=== PATIENT | male | born 1985 | race African-American/Black ===

== ENCOUNTER 2016-04-17 11:33 | Emergency (ER) | payer SELFPAY ==
[~2016-04-17] VITALS: Ht 177.8 cm; Wt 100.0 kg
[2016-04-17 11:35] VITALS: BP 142/91; PULSE 98; RESP 16; TEMP 98.6; O2SAT 97
[2016-04-17] MEDS ORDERED: SODIUM CHLOR 0.9% 1000 ML INJ 1,000 ML IV ONE (13:15)
[2016-04-17 13:26] LABS: AUTOMATED NEUTROPHIL # 9.1 TH/MM3 (1.8-7.7); BASOPHIL # 0.1 TH/MM3 (0-0.2); BASOPHIL % 0.5 % (0.0-2.0); EOSINOPHIL % 0.3 % (0.0-4.0); HEMATOCRIT 45.1 % (39.0-51.0); LYMPH % 20.9 % (9.0-44.0); LYMPHOCYTE # 3.1 TH/MM3 (1.0-4.8); MEAN CELL VOLUME 77.8 FL (80.0-100.0); MEAN CORPUSCULAR HEMOGLOBIN 27.1 PG (27.0-34.0); MEAN CORPUSCULAR HGB CONC 34.9 % (32.0-36.0); MONO % 16.4 % (0.0-8.0); NEUT % 61.9 % (16.0-70.0); PLATELET COUNT 259 TH/MM3 (150-450); RED CELL DISTRIBUTION WIDTH 14.8 % (11.6-17.2); WHITE BLOOD COUNT 14.7 TH/MM3 (4.0-11.0)
[2016-04-17 13:28] LABS: HEMO FLAGS AUTO DIFF
--- NOTE | 2016-04-17 13:28 | PD ---
HPI Chief Complaint: Pain: Acute or Chronic Time Seen by Provider: 13:25 Travel History International Travel<30 days: No Contact w/Intl Traveler<30days: No Traveled to known affect area: No History of Present Illness HPI 30-year-old male presents to the emergency department for evaluation of body aches, "organ pain", pleuritic chest pain. Patient states he thinks "I'm coming down with something". Patient denies any fevers or chills. No shortness of breath. He states he felt nausea, but no vomiting. He states that he had some abdominal pain yesterday but this is resolved. Patient denies any chronic medical problems or taking prescribed medications. He reports drinking approximately 6 pack of beer daily, smokes tobacco. He denies any illicit drug use. Patient denies any other complaints at this time. [facility] Past Medical History Medical History: Denies Significant Hx Hx Anticoagulant Therapy: No Asthma: Yes Blood Disorders: No Bipolar Disorder: Yes Cancer: No Cardiovascular Problems: No Chemotherapy: No Cerebrovascular Accident: No Diabetes: No Diminished Hearing: No Psychiatric: Yes (HBS INPT) Respiratory: No Seizures: No Sickle Cell Disease: Yes (TRAIT) Thyroid Disease: No Ulcer: No Past Surgical History Appendectomy: Yes Other Surgery: Yes (HERNIA REPAIR) Social History Alcohol Use: Yes Tobacco Use: Yes Substance Use: Yes (marijuana) Allergies-Medications (Allergen,Severity, Reaction): Coded Allergies: No Known Allergies (Verified , 04/17/16) Reported Meds & Prescriptions Reported Meds & Active Scripts Active No Active Prescriptions or Reported Medications Review of Systems Except as stated in HPI: all other systems reviewed are Neg Physical Exam Narrative GENERAL: Well-developed well-nourished male patient, ambulatory. Afebrile. SKIN: Warm and dry. HEAD: Normocephalic. Atraumatic. ENT: Mucosa pink and moist. Mild erythema, but no exudates. No uvular edema. No uvular, palatal, or tonsillar deviation. Airway patent. Nasal turbinates appear normal without nasal blood, purulent drainage or septal hematoma. Bilateral tympanic membranes are clear without erythema or perforation. EYES: No scleral icterus. No injection or drainage. NECK: Supple, trachea midline. No JVD or lymphadenopathy. CARDIOVASCULAR: Regular rate and rhythm without murmurs, gallops, or rubs. RESPIRATORY: Breath sounds equal bilaterally. No accessory muscle use. Lungs sounds clear to auscultation. GASTROINTESTINAL: Abdomen soft, non-tender, nondistended. No abdominal pain to palpation. MUSCULOSKELETAL: No cyanosis, or edema. BACK: Nontender without obvious deformity. No CVA tenderness. Data Data Last Documented VS Vital Signs Date Time Temp Pulse Resp B/P Pulse Ox O2 Delivery O2 Flow Rate FiO2 04/17/16 13:52 98 04/17/16 11:35 98.6 98 16 142/91 Orders Magnesium (Mg) (04/17/16 13:03) Phosphorus (Po4) (04/17/16 13:03) Complete Blood Count With Diff (04/17/16 13:03) Basic Metabolic Panel (Bmp) (04/17/16 13:03) Creatine Kinase (Cpk) (04/17/16 13:03) Iv Access Insert/Monitor (04/17/16 13:03) Ecg Monitoring (04/17/16 13:03) Oximetry (04/17/16 13:03) Sodium Chlor 0.9% 1000 Ml Inj (Ns 1000 M (04/17/16 13:15) Chest, Single Ap (04/17/16 ) Labs Laboratory Tests Test 04/17/16 13:02 White Blood Count 14.7 TH/MM3 Red Blood Count 5.80 MIL/MM3 Hemoglobin 15.7 GM/DL Hematocrit 45.1 % Mean Corpuscular Volume 77.8 FL Mean Corpuscular Hemoglobin 27.1 PG Mean Corpuscular Hemoglobin 34.9 % Concent Red Cell Distribution Width 14.8 % Platelet Count 259 TH/MM3 Mean Platelet Volume 8.5 FL Neutrophils (%) (Auto) 61.9 % Lymphocytes (%) (Auto) 20.9 % Monocytes (%) (Auto) 16.4 % Eosinophils (%) (Auto) 0.3 % Basophils (%) (Auto) 0.5 % Neutrophils # (Auto) 9.1 TH/MM3 Lymphocytes # (Auto) 3.1 TH/MM3 Monocytes # (Auto) 2.4 TH/MM3 Eosinophils # (Auto) 0.0 TH/MM3 Basophils # (Auto) 0.1 TH/MM3 CBC Comment AUTO DIFF Differential Comment AUTO DIFF CONFIRMED Platelet Estimate NORMAL Platelet Morphology Comment NORMAL Sodium Level 137 MEQ/L Potassium Level 3.7 MEQ/L Chloride Level 102 MEQ/L Carbon Dioxide Level 30.1 MEQ/L Anion Gap 5 MEQ/L Blood Urea Nitrogen 11 MG/DL Creatinine 1.14 MG/DL Estimat Glomerular Filtration 92 ML/MIN Rate Random Glucose 83 MG/DL Calcium Level 8.4 MG/DL Phosphorus Level 2.4 MG/DL Magnesium Level 2.2 MG/DL Total Creatine Kinase 96 U/L MDM Medical Decision Making Medical Screen Exam Complete: Yes Emergency Medical Condition: Yes Medical Record Reviewed: Yes Interpretation(s) chest x-ray - CONCLUSION: No acute disease. Differential Diagnosis Viral syndrome versus electrolyte abnormality versus dehydration versus rhabdomyolysis Narrative Course 30-year-old male presents to the emergency department for evaluation of body aches, congestion, "organ pain". Patient appears well on exam. Physical exam is reassuring. CBC, BMP, CK, magnesium, phosphorus, chest x-ray ordered and pending. Patient is given normal saline 1 L IV bolus. CBC shows leukocytosis of 14.7, monocytes 16.4. BMP shows no acute abnormality. CK is 96. Magnesium is 2.2. Phosphorus is 2.4. Chest x-ray shows no acute disease. Physical and lab work is consistent with a viral illness. My attending physician, Dr. Carl, is aware of plan, results, disposition and agrees. The patient verbalizes understanding. He is to follow with primary care physician. He is to return for any acute worsening of symptoms. The patient is agreeable to this plan. The patient was discharged in stable condition with instructions, including return instructions and follow up instructions. Diagnosis Primary Impression: Viral illness Referrals: Primary Care Physician call for appointment Patient Instructions: General Instructions, Viral Syndrome (ED) Departure Forms: Tests/Procedures, Work Release Enter return to work date: Apr 19, 2016 Additional Instructions: Rest. Drink plenty of fluids. Tylenol/Motrin. Follow up with your primary care physician. Return to the emergency department for any acute, worsening of symptoms. Med/Other Pt SpecificInfo: No Change to Meds Scripts No Active Prescriptions or Reported Meds Disposition: 01 DISCHARGE HOME Condition: Stable Janina Chavarria Apr 17, 2016 13:28
[2016-04-17 13:49] LABS: BICARBONATE 30.1 MEQ/L (21.0-32.0); MAGNESIUM 2.2 MG/DL (1.5-2.5); POTASSIUM 3.7 MEQ/L (3.5-5.1)
[2016-04-17 13:52] VITALS: O2SAT 98
--- NOTE | 2016-04-17 13:59 | RADRPT ---
EXAM DATE/TIME: 04/17/2016 13:33 [facility] COMPARISON: CHEST SINGLE AP, January 08, 2016, 15:49. INDICATIONS : Cough and chest pain. MEDICAL HISTORY : None. SURGICAL HISTORY : None. ENCOUNTER: Initial ACUITY: 1 day PAIN SCORE: 8/10 LOCATION: Bilateral chest FINDINGS: A single view of the chest demonstrates the lungs to be symmetrically aerated without evidence of mas s, infiltrate or effusion. The cardiomediastinal contours are unremarkable. Osseous structures are intact. CONCLUSION: No acute disease. Aditya Pereira MD on April 17, 2016 at 13:57 Board Certified Radiologist. This report was verified electronically.
[2016-04-17 14:10] LABS: PLATELET ESTIMATE SMEAR NORMAL (NORMAL); PLATELET MORPHOLOGY NORMAL (NORMAL)
[2016-04-17 14:11] LABS: SCAN/DIFF AUTO DIFF CONFIRMED
== END 2016-04-17 14:44 | disposition home or self-care (01) ==
LOC: NEPC 11:33
DX: B34.9 Viral infection, unspecified (principal); J45.909 Unspecified asthma, uncomplicated; D57.3 Sickle-cell trait; Z72.0 Tobacco use; D72.829 Elevated white blood cell count, unspecified
CPT/HCPCS: 71010; 80048; 82550; 83735; 84100; 85025; 96360; 99283; J7030

== ENCOUNTER 2016-05-21 20:52 | Emergency (ER) | payer SELFPAY ==
[~2016-05-21] VITALS: Ht 177.8 cm; Wt 100.0 kg
[2016-05-21 20:55] VITALS: BP 132/79; PULSE 78; RESP 16; TEMP 97.5; O2SAT 95
== END 2016-05-21 22:17 | disposition left against medical advice (07) ==
LOC: NED 20:52
DX: Z53.21 Procedure and treatment not carried out due to patient leaving prior to being seen by health care provider (principal)
CPT/HCPCS: 99281

== ENCOUNTER 2016-05-27 16:49 | Emergency (ER) | payer SELFPAY ==
[~2016-05-27] VITALS: Ht 177.8 cm; Wt 100.0 kg
[2016-05-27 17:00] VITALS: BP 155/104; PULSE 121; RESP 22; TEMP 98.8; O2SAT 100
[2016-05-27 17:01] VITALS: BP 172/101; PULSE 142; RESP 26; TEMP 98; O2SAT 95
[2016-05-27 17:06] VITALS: RESP 22; O2SAT 100
[2016-05-27] MEDS ORDERED: LORazepam 2 MG/ML VIAL IV PUSH ONE ×2 (17:15)
[2016-05-27] MEDS ORDERED: SODIUM CHLOR 0.9% 1000 ML INJ 1,000 ML IV ONE (17:15)
[2016-05-27] MEDS ORDERED: SODIUM CHLORIDE 0.9% FLUSH 10 ML FLUSH IVF PRN (17:15)
[2016-05-27 17:16] LABS: AUTOMATED NEUTROPHIL # 12.7 TH/MM3 (1.8-7.7); BASOPHIL # 0.1 TH/MM3 (0-0.2); BASOPHIL % 0.7 % (0.0-2.0); EOSINOPHIL # 0.1 TH/MM3 (0-0.4); EOSINOPHIL % 0.6 % (0.0-4.0); HEMATOCRIT 45.6 % (39.0-51.0); LYMPH % 26.6 % (9.0-44.0); LYMPHOCYTE # 5.2 TH/MM3 (1.0-4.8); MEAN CELL VOLUME 79.1 FL (80.0-100.0); MEAN CORPUSCULAR HEMOGLOBIN 26.6 PG (27.0-34.0); MEAN CORPUSCULAR HGB CONC 33.7 % (32.0-36.0); MONO % 7.1 % (0.0-8.0); PLATELET COUNT 377 TH/MM3 (150-450); RED BLOOD COUNT 5.77 MIL/MM3 (4.50-5.90); WHITE BLOOD COUNT 19.5 TH/MM3 (4.0-11.0)
[2016-05-27 17:19] LABS: HEMO FLAGS AUTO DIFF
[2016-05-27 17:27] LABS: APTT (PATIENT) 24.8 SEC (24.3-30.1); PROTHROMBIN TIME - PATIENT 10.9 SEC (9.8-11.6)
[2016-05-27 17:28] LABS: EOSINOPHILS 1 % (0-4); NEUTROPHIL # MANUAL DIFF 12.5 TH/MM3 (1.8-7.7); PLATELET ESTIMATE SMEAR NORMAL (NORMAL); PLATELET MORPHOLOGY NORMAL (NORMAL); POLYS (SEG NEUTROPHILS) 64 % (16-70); SCAN/DIFF FINAL DIFF MANUAL; WBC DIFF SAMPLE 100
--- NOTE | 2016-05-27 17:31 | PD ---
HPI Chief Complaint: Chest Pain Time Seen by Provider: 17:04 Travel History International Travel<30 days: No Contact w/Intl Traveler<30days: No Traveled to known affect area: No History of Present Illness HPI So 31-year-old man who presents to the emergency department complaining of chest pain that developed after snorting cocaine. Patient states that approximately 1 hour prior to arrival he was snorting cocaine. She can before without adverse effect. Shortly thereafter began to develop chest pain shortness of breath and anxiety. He was also drinking alcohol. He is a history of asthma and anxiety. No history of heart problems. Patient just states over and over again that he feels like he is dying and that he could have a heart attack. History Past Medical History Narrative Medical Asthma Anxiety Cocaine abuse Social History Alcohol Use: Yes (ONCE A WEEK) Tobacco Use: Yes (1/2PPD) Allergies-Medications (Allergen,Severity, Reaction): Coded Allergies: No Known Allergies (Verified , 05/27/16) Reported Meds & Prescriptions Reported Meds & Active Scripts Active No Active Prescriptions or Reported Medications Review of Systems Except as stated in HPI: all other systems reviewed are Neg Physical Exam Narrative GENERAL: Well-appearing 31-year-old man, anxious, nontoxic. SKIN: Focused skin assessment warm/dry. NECK: Trachea midline. No JVD. CARDIOVASCULAR: Heart rate rapid, regular. RESPIRATORY: No accessory muscle use. Clear to auscultation. Breath sounds equal bilaterally. GASTROINTESTINAL: Abdomen soft, non-tender, nondistended. Hepatic and splenic margins not palpable. MUSCULOSKELETAL: No obvious deformities. No edema. NEUROLOGICAL: Awake and alert. No obvious cranial nerve deficits. Motor grossly within normal limits. Normal speech. PSYCHIATRIC: Appropriate mood and affect; insight and judgment normal. Data Data Last Documented VS Vital Signs Date Time Temp Pulse Resp B/P Pulse Ox O2 Delivery O2 Flow Rate FiO2 05/27/16 18:58 104 20 135/93 96 Room Air 05/27/16 17:01 98.0 Orders Electrocardiogram (05/27/16 17:04) Complete Blood Count With Diff (05/27/16 17:04) Comprehensive Metabolic Panel (05/27/16 17:04) Magnesium (Mg) (05/27/16 17:04) Prothrombin Time / Inr (Pt) (05/27/16 17:04) Act Partial Throm Time (Ptt) (05/27/16 17:04) Troponin I (05/27/16 17:04) Chest, Single Ap (05/27/16 17:04) Ecg Monitoring (05/27/16 17:04) Bilateral Bp Monitoring (05/27/16 17:04) Iv Access Insert/Monitor (05/27/16 17:04) Oximetry (05/27/16 17:04) Oxygen Administration (05/27/16 17:04) Sodium Chloride 0.9% Flush (Ns Flush) (05/27/16 17:15) Lorazepam Inj (Ativan Inj) (05/27/16 17:15) Lorazepam Inj (Ativan Inj) (05/27/16 17:15) Sodium Chlor 0.9% 1000 Ml Inj (Ns 1000 M (05/27/16 17:15) Troponin I (05/27/16 20:00) Labs Laboratory Tests Test 05/27/16 17:05 White Blood Count 19.5 TH/MM3 Red Blood Count 5.77 MIL/MM3 Hemoglobin 15.4 GM/DL Hematocrit 45.6 % Mean Corpuscular Volume 79.1 FL Mean Corpuscular Hemoglobin 26.6 PG Mean Corpuscular Hemoglobin 33.7 % Concent Red Cell Distribution Width 16.0 % Platelet Count 377 TH/MM3 Mean Platelet Volume 8.1 FL Neutrophils (%) (Auto) 65.0 % Lymphocytes (%) (Auto) 26.6 % Monocytes (%) (Auto) 7.1 % Eosinophils (%) (Auto) 0.6 % Basophils (%) (Auto) 0.7 % Neutrophils # (Auto) 12.7 TH/MM3 Lymphocytes # (Auto) 5.2 TH/MM3 Monocytes # (Auto) 1.4 TH/MM3 Eosinophils # (Auto) 0.1 TH/MM3 Basophils # (Auto) 0.1 TH/MM3 CBC Comment AUTO DIFF Differential Total Cells 100 Counted Neutrophils % (Manual) 64 % Lymphocytes % 28 % Monocytes % 7 % Eosinophils % 1 % Neutrophils # (Manual) 12.5 TH/MM3 Differential Comment FINAL DIFF MANUAL Platelet Estimate NORMAL Platelet Morphology Comment NORMAL Red Cell Morphology Comment NORMAL Prothrombin Time 10.9 SEC Prothromb Time International 1.0 RATIO Ratio Activated Partial 24.8 SEC Thromboplast Time Sodium Level 138 MEQ/L Potassium Level 3.2 MEQ/L Chloride Level 104 MEQ/L Carbon Dioxide Level 24.3 MEQ/L Anion Gap 10 MEQ/L Blood Urea Nitrogen 7 MG/DL Creatinine 1.06 MG/DL Estimat Glomerular Filtration 99 ML/MIN Rate Random Glucose 128 MG/DL Calcium Level 8.7 MG/DL Magnesium Level 2.1 MG/DL Total Bilirubin 0.4 MG/DL Aspartate Amino Transf 14 U/L (AST/SGOT) Alanine Aminotransferase 24 U/L (ALT/SGPT) Alkaline Phosphatase 82 U/L Troponin I LESS THAN 0.02 NG/ML Total Protein 8.2 GM/DL Albumin 4.4 GM/DL [facility] Medical Decision Making Medical Screen Exam Complete: Yes Emergency Medical Condition: Yes Interpretation(s) My review of EKG: Sinus tachycardia rate of 136, normal axis, normal intervals, no definite evidence of acute ischemia. Some nonspecific lateral ST changes. Differential Diagnosis Cocaine chest pain, dysrhythmia, ischemia, anxiety, other Narrative Course Medical decision making INITIAL: 31-year-old male with cocaine chest pain, also history of anxiety and clearly has an anxiety component to his symptoms as well. We'll check labs, EKG , chest x-ray, IV fluids, Ativan, reassess. FINAL: Initial set of labs unremarkable. Heart rate improved with fluids and benzodiazepine. We'll check repeat three-hour troponin. Discharge if negative. Scripts No Active Prescriptions or Reported Meds Salomón Gupta MD May 27, 2016 17:31
[2016-05-27 17:43] LABS: ALT (GPT) 24 U/L (12-78); ANION GAP 10 MEQ/L (5-15); AST (GOT) 14 U/L (15-37); BICARBONATE 24.3 MEQ/L (21.0-32.0); BLOOD UREA NITROGEN 7 MG/DL (7-18); CHLORIDE 104 MEQ/L (98-107); GLOMERULAR FILTRATION RATE 99 ML/MIN (>89); MAGNESIUM 2.1 MG/DL (1.5-2.5); POTASSIUM 3.2 MEQ/L (3.5-5.1); SODIUM (NA) 138 MEQ/L (136-145)
[2016-05-27 17:47] LABS: ALKALINE PHOSPHATASE 82 U/L (45-117); TOTAL BILIRUBIN ADULT 0.4 MG/DL (0.2-1.0)
--- NOTE | 2016-05-27 18:04 | RADRPT ---
EXAM DATE/TIME: 05/27/2016 17:03 [facility] COMPARISON: No previous studies available for comparison. INDICATIONS : Chest pain. MEDICAL HISTORY : None. SURGICAL HISTORY : None. ENCOUNTER: Initial ACUITY: 1 day PAIN SCORE: 10/10 LOCATION: Bilateral chest FINDINGS: A single view of the chest demonstrates the lungs to be symmetrically aerated without evidence of mas s, infiltrate or effusion. Minimal dependent basilar atelectasis. The cardiomediastinal contours are unremarkable. Osseous structures are intact. CONCLUSION: 1. Minimal dependent basilar atelectasis. No effusion or pneumothorax. Yovani Eaton MD on May 27, 2016 at 18:01 Board Certified Radiologist. This report was verified electronically.
[2016-05-27 18:58] VITALS: BP 135/93; PULSE 104; RESP 20; O2SAT 96
--- NOTE | 2016-05-27 20:48 | PD ---
Data Data Last Documented VS Vital Signs Date Time Temp Pulse Resp B/P Pulse Ox O2 Delivery O2 Flow Rate FiO2 05/27/16 18:58 104 20 135/93 96 Room Air 05/27/16 17:01 98.0 Orders Electrocardiogram (05/27/16 17:04) Complete Blood Count With Diff (05/27/16 17:04) Comprehensive Metabolic Panel (05/27/16 17:04) Magnesium (Mg) (05/27/16 17:04) Prothrombin Time / Inr (Pt) (05/27/16 17:04) Act Partial Throm Time (Ptt) (05/27/16 17:04) Troponin I (05/27/16 17:04) Chest, Single Ap (05/27/16 17:04) Ecg Monitoring (05/27/16 17:04) Bilateral Bp Monitoring (05/27/16 17:04) Iv Access Insert/Monitor (05/27/16 17:04) Oximetry (05/27/16 17:04) Oxygen Administration (05/27/16 17:04) Sodium Chloride 0.9% Flush (Ns Flush) (05/27/16 17:15) Lorazepam Inj (Ativan Inj) (05/27/16 17:15) Lorazepam Inj (Ativan Inj) (05/27/16 17:15) Sodium Chlor 0.9% 1000 Ml Inj (Ns 1000 M (05/27/16 17:15) Troponin I (05/27/16 20:00) Labs Laboratory Tests Test 05/27/16 05/27/16 17:05 19:53 White Blood Count 19.5 TH/MM3 Red Blood Count 5.77 MIL/MM3 Hemoglobin 15.4 GM/DL Hematocrit 45.6 % Mean Corpuscular Volume 79.1 FL Mean Corpuscular Hemoglobin 26.6 PG Mean Corpuscular Hemoglobin 33.7 % Concent Red Cell Distribution Width 16.0 % Platelet Count 377 TH/MM3 Mean Platelet Volume 8.1 FL Neutrophils (%) (Auto) 65.0 % Lymphocytes (%) (Auto) 26.6 % Monocytes (%) (Auto) 7.1 % Eosinophils (%) (Auto) 0.6 % Basophils (%) (Auto) 0.7 % Neutrophils # (Auto) 12.7 TH/MM3 Lymphocytes # (Auto) 5.2 TH/MM3 Monocytes # (Auto) 1.4 TH/MM3 Eosinophils # (Auto) 0.1 TH/MM3 Basophils # (Auto) 0.1 TH/MM3 CBC Comment AUTO DIFF Differential Total Cells 100 Counted Neutrophils % (Manual) 64 % Lymphocytes % 28 % Monocytes % 7 % Eosinophils % 1 % Neutrophils # (Manual) 12.5 TH/MM3 Differential Comment FINAL DIFF MANUAL Platelet Estimate NORMAL Platelet Morphology Comment NORMAL Red Cell Morphology Comment NORMAL Prothrombin Time 10.9 SEC Prothromb Time International 1.0 RATIO Ratio Activated Partial 24.8 SEC Thromboplast Time Sodium Level 138 MEQ/L Potassium Level 3.2 MEQ/L Chloride Level 104 MEQ/L Carbon Dioxide Level 24.3 MEQ/L Anion Gap 10 MEQ/L Blood Urea Nitrogen 7 MG/DL Creatinine 1.06 MG/DL Estimat Glomerular Filtration 99 ML/MIN Rate Random Glucose 128 MG/DL Calcium Level 8.7 MG/DL Magnesium Level 2.1 MG/DL Total Bilirubin 0.4 MG/DL Aspartate Amino Transf 14 U/L (AST/SGOT) Alanine Aminotransferase 24 U/L (ALT/SGPT) Alkaline Phosphatase 82 U/L Troponin I LESS THAN 0.02 LESS THAN 0.02 NG/ML NG/ML Total Protein 8.2 GM/DL Albumin 4.4 GM/DL [facility] Medical Record Reviewed: Yes Supervised Visit with BAKARI: No Interpretation(s) Last Impressions Chest X-Ray 05/27/16 170 Signed Impressions: Service Date/Time: Friday, May 27, 2016 17:03 - CONCLUSION: 1. Minimal dependent basilar atelectasis. No effusion or pneumothorax. Yovani Eaton MD Narrative Course During the course of the patients emergency department visit, the patients history, examination, and differential diagnosis were reviewed with the patient. The patient had IV access obtained and blood work sent for analysis. The patient was placed on a gambling monitor with oximetry and blood pressure monitoring. The patient's case was checked out to me by Dr. Gupta at the conclusion of his shift. He reported that the patient had a history of chest pain and recent history of cocaine use. The patient had been stable during his initial evaluation in the emergency department. He requested that I review the patient's repeat troponin and if it was not elevated, the patient could be discharged home. The patient was provided Ativan 1 mg IV which was repeated 1, normal saline 2 L while in the emergency department. The patients laboratory studies were reviewed and remarkable for a white count of 19.5, hemoglobin 15.4, platelets 377 with 64 neutrophils, 28 lymphocytes, monocytes 7, CMP is remarkable for a potassium 3.2 which was supplemented orally , glucose 128, AST 14, troponin I less than 0.02, repeat troponin I is less than 0.02, PT PTT unremarkable. The patient's elevated white blood cell count is found to be related to a stress response. Radiology studies were reviewed and remarkable for a chest x-ray that shows minimal dependent basilar atelectasis, no effusion or pneumothorax. The patient is resting comfortably and feels better, is alert and in no distress. The patients results and examination findings were discussed with the patient. The repeat examination is unremarkable and benign. The history, exam, diagnostic testing, and current condition do not suggest any significant pathology to warrant further testing, continued ED treatment, admission, or surgical evaluation at this point. The vital signs have been stable. The patient does not have uncontrollable pain, intractable vomiting, or other significant symptoms. The patient's condition is stable and appropriate for discharge. The patient will pursue further outpatient evaluation with a primary care physician or other designated or consulting physician as indicated in the discharge instructions. The patient expressed understanding and was agreeable with this plan. Diagnosis Primary Impression: Chest pain Qualified Code: R07.9 - Chest pain, unspecified type Referrals: Primary Care Physician Additional Instruction: Avoid cocaine use Med/Other Pt SpecificInfo: No Meds Exist/No RX given Scripts No Active Prescriptions or Reported Meds Disposition: 01 DISCHARGE HOME Condition: Stable Kanwal Duarte MD May 27, 2016 20:48
[2016-05-28] MEDS ORDERED: POTASSIUM CHLORIDE 20 MEQ CONTROLLED RELEASE TAB PO SCH (09:00)
--- NOTE | 2016-05-28 10:40 | EKG ---
Date Performed: 05/27/2016 Time Performed: 16:57:45 PTAGE: 31 years EKG: SINUS TACHYCARDIA NONSPECIFIC ST & T-WAVE ABNORMALITY ABNORMAL ECG PREVIOUS TRACING : 07/02/2015 03.20 DOCTOR: Andrew Guzmán Interpretating Date/Time 05/28/2016 10:36:51
== END 2016-05-27 21:31 | disposition home or self-care (01) ==
LOC: NEPC 16:49
DX: R07.9 Chest pain, unspecified (principal); D72.829 Elevated white blood cell count, unspecified; R00.0 Tachycardia, unspecified; R94.31 Abnormal electrocardiogram [ECG] [EKG]; R79.89 Other specified abnormal findings of blood chemistry; F14.10 Cocaine abuse, uncomplicated; F17.210 Nicotine dependence, cigarettes, uncomplicated
CPT/HCPCS: 71010; 80053; 83735; 84484; 85007; 85027; 85610; 85730; 93005; 96361; 96374; 99285; J2060; J7030

== ENCOUNTER 2016-06-11 04:51 | Emergency (ER) | payer SELFPAY ==
[~2016-06-11] VITALS: Ht 182.9 cm; Wt 95.0 kg
[2016-06-11 04:57] VITALS: BP 142/80; PULSE 94; RESP 15; TEMP 98.3; O2SAT 97
[2016-06-11] MEDS ORDERED: SODIUM CHLORIDE 0.9% FLUSH 10 ML FLUSH IVF PRN (05:30)
[2016-06-11] MEDS ORDERED: ONDANSETRON HCL 4 MG/2 ML VIAL IVP ONE (05:30)
--- NOTE | 2016-06-11 05:35 | PD ---
HPI . Hematemesis Chief Complaint: GI Complaint Time Seen by Provider: 05:18 Travel History International Travel<30 days: No Contact w/Intl Traveler<30days: No Traveled to known affect area: No History of Present Illness HPI Patient presents complaining with about a 2 day history of upper abdominal pain associated with about 4 episodes of hematemesis and 2 episodes of dark stools. He states that he presents to us tonight because he just had another episode of hematemesis. He is concerned because his father has a history of colon cancer. The patient declined Zofran per EMS because he felt that the government had laced the Zofran with HIV infection. PFSH Past Medical History Hx Anticoagulant Therapy: No Asthma: Yes Blood Disorders: No Bipolar Disorder: Yes Anxiety: Yes Cancer: No Cardiovascular Problems: No Chemotherapy: No Cerebrovascular Accident: No Diabetes: No Diminished Hearing: No Psychiatric: Yes (HBS INPT) Respiratory: No Seizures: No Sickle Cell Disease: Yes (TRAIT) Thyroid Disease: No Ulcer: No Past Surgical History Appendectomy: Yes Other Surgery: Yes (HERNIA REPAIR) Social History Alcohol Use: Yes (ONCE A WEEK) Tobacco Use: Yes (1/2PPD) Substance Use: Yes (marijuana, COCAINE) Allergies-Medications (Allergen,Severity, Reaction): Coded Allergies: No Known Allergies (Verified , 06/11/16) Reported Meds & Prescriptions Reported Meds & Active Scripts Active No Active Prescriptions or Reported Medications Review of Systems Except as stated in HPI: all other systems reviewed are Neg General / Constitutional: No: Fever, Chills HENT: Positive: Lightheadedness Cardiovascular: No: Chest Pain or Discomfort Respiratory: No: Shortness of Breath Gastrointestinal: Positive: Nausea, Vomiting, Abdominal Pain, Hematemesis, Other (dark stools) Physical Exam Narrative GENERAL: Awake and alert and in no acute distress. SKIN: Warm and dry. HEAD: Atraumatic. Normocephalic. EYES: Pupils equal and round. Extraocular movements are intact. ENT: No nasal bleeding or discharge. Mucous membranes pink and moist. NECK: Trachea midline. Neck is supple. CARDIOVASCULAR: Regular rate and rhythm. Heart sounds are normal. RESPIRATORY: No accessory muscle use. Lungs are clear with full air movement throughout. GASTROINTESTINAL: Abdomen soft, non-tender, nondistended. RECTAL: No visible hemorrhoid. Normal rectal tone. Brown stool in the rectal vault which is Hemoccult negative. No palpable masses. MUSCULOSKELETAL: No obvious deformities. No edema. NEUROLOGICAL: Awake and alert. No obvious cranial nerve deficits. Motor grossly within normal limits. Normal speech. PSYCHIATRIC: Appropriate mood and affect; insight and judgment questionable. He thinks that the government has laced medications with HIV. Data Data Last Documented VS Vital Signs Date Time Temp Pulse Resp B/P Pulse Ox O2 Delivery O2 Flow Rate FiO2 06/11/16 05:04 15 06/11/16 04:57 98.3 94 142/80 97 Orders Basic Metabolic Panel (Bmp) (06/11/16 05:18) Complete Blood Count With Diff (06/11/16 05:18) Iv Access Insert/Monitor (06/11/16 05:18) Ondansetron Inj (Zofran Inj) (06/11/16 05:30) Sodium Chloride 0.9% Flush (Ns Flush) (06/11/16 05:30) Ct Abd/Pel W Iv Contrast(Rout) (06/11/16 05:22) Ct Thorax/ Chest W Iv Contrast (06/11/16 05:48) Iohexol 350 Inj (Omnipaque 350 Inj) (06/11/16 05:55) Labs Laboratory Tests Test 06/11/16 05:30 White Blood Count 11.7 TH/MM3 Red Blood Count 5.55 MIL/MM3 Hemoglobin 15.3 GM/DL Hematocrit 43.1 % Mean Corpuscular Volume 77.6 FL Mean Corpuscular Hemoglobin 27.6 PG Mean Corpuscular Hemoglobin 35.5 % Concent Red Cell Distribution Width 15.5 % Platelet Count 375 TH/MM3 Mean Platelet Volume 8.7 FL Neutrophils (%) (Auto) 59.7 % Lymphocytes (%) (Auto) 25.5 % Monocytes (%) (Auto) 11.5 % Eosinophils (%) (Auto) 2.8 % Basophils (%) (Auto) 0.5 % Neutrophils # (Auto) 7.0 TH/MM3 Lymphocytes # (Auto) 3.0 TH/MM3 Monocytes # (Auto) 1.3 TH/MM3 Eosinophils # (Auto) 0.3 TH/MM3 Basophils # (Auto) 0.1 TH/MM3 CBC Comment DIFF FINAL Differential Comment Sodium Level 140 MEQ/L Potassium Level 4.5 MEQ/L Chloride Level 106 MEQ/L Carbon Dioxide Level 23.6 MEQ/L Anion Gap 10 MEQ/L Blood Urea Nitrogen 9 MG/DL Creatinine 1.01 MG/DL Estimat Glomerular Filtration 105 ML/MIN Rate Random Glucose 91 MG/DL Calcium Level 8.7 MG/DL [facility] Medical Decision Making Medical Screen Exam Complete: Yes Emergency Medical Condition: Yes Differential Diagnosis Differential diagnosis includes but is not limited to gastritis, peptic ulcer disease, esophageal varices Narrative Course Patient presents complaining with upper abdominal pain on the hematemesis and dark tarry stools. His stools are Hemoccult negative. CBC & BMP Diagram 06/11/16 05:30 CT of his chest, abdomen and pelvis are negative. HemaPrompt Point of Care Internal Pos. & Neg. Controls: Passed Fecal Specimen Occult Blood: Negative Diagnosis Primary Impression: Gastritis Qualified Code: K29.00 - Acute gastritis, presence of bleeding unspecified, unspecified gastritis type Patient Instructions: Gastritis (DC), General Instructions Med/Other Pt SpecificInfo: Prescription(s) given Scripts Omeprazole (Prilosec)20 Mg Cap20 Mg PO DAILY #30 CAP Ref 0 Prov:María Gil MD 06/11/16 Disposition: 01 DISCHARGE HOME Condition: Stable María Gil MD Jun 11, 2016 05:35
[2016-06-11 05:40] LABS: BASOPHIL # 0.1 TH/MM3 (0-0.2); BASOPHIL % 0.5 % (0.0-2.0); EOSINOPHIL # 0.3 TH/MM3 (0-0.4); EOSINOPHIL % 2.8 % (0.0-4.0); HEMATOCRIT 43.1 % (39.0-51.0); HEMO FLAGS DIFF FINAL; LYMPH % 25.5 % (9.0-44.0); MEAN CELL VOLUME 77.6 FL (80.0-100.0); MEAN CORPUSCULAR HEMOGLOBIN 27.6 PG (27.0-34.0); MEAN CORPUSCULAR HGB CONC 35.5 % (32.0-36.0); MONO % 11.5 % (0.0-8.0); NEUT % 59.7 % (16.0-70.0); PLATELET COUNT 375 TH/MM3 (150-450); RED BLOOD COUNT 5.55 MIL/MM3 (4.50-5.90); RED CELL DISTRIBUTION WIDTH 15.5 % (11.6-17.2); WHITE BLOOD COUNT 11.7 TH/MM3 (4.0-11.0)
[2016-06-11] MEDS ORDERED: IOHEXOL 350 MG/ML 10 ML VIAL (for RAD DIAG) IV ONE (05:55)
[2016-06-11 06:03] LABS: BICARBONATE 23.6 MEQ/L (21.0-32.0); POTASSIUM 4.5 MEQ/L (3.5-5.1)
--- NOTE | 2016-06-11 06:12 | RADRPT ---
EXAM DATE/TIME: 06/11/2016 05:50 [facility] COMPARISON: No previous studies available for comparison. INDICATIONS : Abdominal pain with nausea, vomitng and diarrhea. IV CONTRAST: 95 cc Omnipaque 350 (iohexol) IV ; Cumulative dose for multiple exams. ORAL CONTRAST: No oral contrast ingested. RADIATION DOSE: 17.55 CTDIvol (mGy) ; Combined studies - Thorax/Abdomen/Pelvis MEDICAL HISTORY : Asthma. SURGICAL HISTORY : Appendectomy. ENCOUNTER: Initial ACUITY: 2 days PAIN SCALE: 6/10 LOCATION: Bilateral abdomen TECHNIQUE: Volumetric scanning of the abdomen and pelvis was performed. Using automated exposure control and ad justment of the mA and/or kV according to patient size, radiation dose was kept as low as reasonably achievable to obtain optimal diagnostic quality images. FINDINGS: LOWER LUNGS: The visualized lower lungs are clear. LIVER: Homogeneous density without lesion. There is no dilation of the biliary tree. No calcified gallston es. SPLEEN: Normal size without lesion. PANCREAS: Within normal limits. KIDNEYS: Normal in size and shape. There is no mass, stone or hydronephrosis. ADRENAL GLANDS: Within normal limits. VASCULAR: There is no aortic aneurysm. BOWEL/MESENTERY: The stomach, small bowel, and colon demonstrate no acute abnormality. There is no free intraperitone al air or fluid. ABDOMINAL WALL: Within normal limits. RETROPERITONEUM: There is no lymphadenopathy. BLADDER: No wall thickening or mass. REPRODUCTIVE: Within normal limits. INGUINAL: There is no lymphadenopathy or hernia. MUSCULOSKELETAL: Within normal limits for patient age. CONCLUSION: Normal examination. Salomón Flood MD on June 11, 2016 at 6:10 Board Certified Radiologist. This report was verified electronically.
--- NOTE | 2016-06-11 06:14 | RADRPT ---
EXAM DATE/TIME: 06/11/2016 05:50 [facility] COMPARISON: No previous studies available for comparison. INDICATIONS : Hemoptysis. IV CONTRAST: 95 cc Omnipaque 350 (iohexol) IV ; Cumulative dose for multiple exams. RADIATION DOSE: 17.55 CTDIvol (mGy) ; Combined studies - Thorax/Abdomen/Pelvis MEDICAL HISTORY : Asthma SURGICAL HISTORY : Appendectomy. ENCOUNTER: Initial ACUITY: 2 days PAIN SCALE: 6/10 LOCATION: chest TECHNIQUE: Volumetric scanning of the chest was performed. Using automated exposure control and adjustment of t he mA and/or kV according to patient size, radiation dose was kept as low as reasonably achievable to obtain optimal diagnostic quality images. FINDINGS: LUNGS: There is no consolidation or pneumothorax. No concerning pulmonary nodule is visualized. PLEURA: There is no pleural thickening or pleural effusion. MEDIASTINUM: The heart and great vessels demonstrate no acute abnormality. There is no mediastinal or hilar lymph adenopathy. AXILLAE: Within normal limits. No lymphadenopathy. SKELETAL: Within normal limits for patient age. MISCELLANEOUS: The visualized upper abdominal organs demonstrate no acute abnormality. CONCLUSION: Normal examination. Salomón Flood MD on June 11, 2016 at 6:12 Board Certified Radiologist. This report was verified electronically.
[2016-06-11] MEDS ORDERED: PRIL20CA9 PO (06:16)
== END 2016-06-11 07:02 | disposition home or self-care (01) ==
LOC: NEPC 04:51
DX: K29.71 Gastritis, unspecified, with bleeding (principal); R10.10 Upper abdominal pain, unspecified; J45.909 Unspecified asthma, uncomplicated
CPT/HCPCS: 71260; 74177; 80048; 85025; 96374; 99284; J2405; Q9967

== ENCOUNTER 2016-06-14 11:07 | Observation (INO) | payer SELFPAY ==
[~2016-06-14] VITALS: Ht 177.8 cm; Wt 102.0 kg
[~2016-06-14 11:07] MED LIST: PRIL20CA9 PO
[2016-06-14 11:09] VITALS: BP 135/96; PULSE 126; RESP 18; TEMP 98.2; O2SAT 98
--- NOTE | 2016-06-14 11:16 | PD ---
Physical Exam Time Seen by Provider: 11:13 Narrative 31yo M w/ c/o left sided chest pain for the last few hours w/SOB. Cocaine use last night. Hx of anxiety and chest pain, but not like this. Patient stable. Patient seen in triage. Awaiting bed placement. Data Data Last Documented VS Vital Signs Date Time Temp Pulse Resp B/P Pulse Ox O2 Delivery O2 Flow Rate FiO2 06/14/16 11:09 98.2 126 18 135/96 98 MDM Supervised Visit with BAKARI: Kathy Contreras Jun 14, 2016 11:16
[2016-06-14] MEDS ORDERED: ASPIRIN 81 MG CHEW TAB PO ONE (11:45)
[2016-06-14] MEDS ORDERED: SODIUM CHLORIDE 0.9% FLUSH 10 ML FLUSH IVF PRN (11:45)
[2016-06-14 11:48] VITALS: PULSE 102; RESP 16; O2SAT 97
--- NOTE | 2016-06-14 11:54 | PD ---
HPI . Chest pain Chief Complaint: Chest Pain Time Seen by Provider: 11:39 Travel History International Travel<30 days: No Contact w/Intl Traveler<30days: No Traveled to known affect area: No History of Present Illness HPI Patient presents with chest pain and shortness of breath. This started about 2 hours ago. He describes it as a dull pain and rates it as 8/10. It started after he ran approximately 1 mile to catch a bus to go to work. It Persisted. Patient admits to using cocaine last night and this morning. PFSH Past Medical History Hx Anticoagulant Therapy: No Asthma: Yes Blood Disorders: No Bipolar Disorder: Yes Anxiety: Yes Cancer: No Cardiovascular Problems: No Chemotherapy: No Cerebrovascular Accident: No Diabetes: No Diminished Hearing: No Psychiatric: Yes (HBS INPT) Respiratory: No Seizures: No Sickle Cell Disease: Yes (TRAIT) Thyroid Disease: No Ulcer: No Past Surgical History Appendectomy: Yes Other Surgery: Yes (HERNIA REPAIR) Social History Alcohol Use: Yes (ONCE A WEEK) Tobacco Use: Yes (1/2PPD) Substance Use: Yes (marijuana, COCAINE) Allergies-Medications (Allergen,Severity, Reaction): Coded Allergies: No Known Allergies (Verified , 06/14/16) Reported Meds & Prescriptions Reported Meds & Active Scripts Active Review of Systems Except as stated in HPI: all other systems reviewed are Neg Cardiovascular: Positive: Chest Pain or Discomfort Respiratory: Positive: Shortness of Breath Psychiatric: Positive: Anxiety Physical Exam Narrative GENERAL: Patient is very anxious appearing. SKIN: Warm and dry. HEAD: Atraumatic. Normocephalic. EYES: Pupils equal and round. Extraocular movements are intact. ENT: No nasal bleeding or discharge. Mucous membranes pink and moist. NECK: Trachea midline. Neck is supple. CARDIOVASCULAR: Sinus tachycardia with a rate of about 110. Heart sounds are normal. RESPIRATORY: No accessory muscle use. Lungs are clear with full air movement throughout. Chest wall is nontender to palpation. GASTROINTESTINAL: Abdomen soft, non-tender, nondistended. MUSCULOSKELETAL: No obvious deformities. No edema. NEUROLOGICAL: Awake and alert. No obvious cranial nerve deficits. Motor grossly within normal limits. Normal speech. PSYCHIATRIC: Appropriate mood and affect; insight and judgment normal. Data Data Last Documented VS Vital Signs Date Time Temp Pulse Resp B/P Pulse Ox O2 Delivery O2 Flow Rate FiO2 06/14/16 11:51 101 Room Air 06/14/16 11:48 16 97 06/14/16 11:09 98.2 135/96 Orders Electrocardiogram (06/14/16 ) Basic Metabolic Panel (Bmp) (06/14/16 11:40) Ckmb (Isoenzyme) Profile (06/14/16 11:40) Complete Blood Count With Diff (06/14/16 11:40) Magnesium (Mg) (06/14/16 11:40) Troponin I (06/14/16 11:40) Chest, Single Ap (06/14/16 11:40) Ecg Monitoring (06/14/16 11:40) Iv Access Insert/Monitor (06/14/16 11:40) Oximetry (06/14/16 11:40) Aspirin Chew (Aspirin Chew) (06/14/16 11:45) Sodium Chloride 0.9% Flush (Ns Flush) (06/14/16 11:45) Lorazepam Inj (Ativan Inj) (06/14/16 12:00) CKMB (06/14/16 11:50) CKMB% (06/14/16 11:50) Labs Laboratory Tests Test 06/14/16 11:50 White Blood Count 12.1 TH/MM3 Red Blood Count 5.45 MIL/MM3 Hemoglobin 15.0 GM/DL Hematocrit 42.6 % Mean Corpuscular Volume 78.2 FL Mean Corpuscular Hemoglobin 27.5 PG Mean Corpuscular Hemoglobin 35.2 % Concent Red Cell Distribution Width 15.8 % Platelet Count 379 TH/MM3 Mean Platelet Volume 8.2 FL Neutrophils (%) (Auto) 59.5 % Lymphocytes (%) (Auto) 25.5 % Monocytes (%) (Auto) 10.0 % Eosinophils (%) (Auto) 4.2 % Basophils (%) (Auto) 0.8 % Neutrophils # (Auto) 7.2 TH/MM3 Lymphocytes # (Auto) 3.1 TH/MM3 Monocytes # (Auto) 1.2 TH/MM3 Eosinophils # (Auto) 0.5 TH/MM3 Basophils # (Auto) 0.1 TH/MM3 CBC Comment DIFF FINAL Differential Comment Sodium Level 138 MEQ/L Potassium Level 4.3 MEQ/L Chloride Level 104 MEQ/L Carbon Dioxide Level 25.4 MEQ/L Anion Gap 9 MEQ/L Blood Urea Nitrogen 11 MG/DL Creatinine 1.24 MG/DL Estimat Glomerular Filtration 83 ML/MIN Rate Random Glucose 82 MG/DL Calcium Level 9.0 MG/DL Magnesium Level 2.3 MG/DL Total Creatine Kinase 147 U/L Creatine Kinase MB 1.1 NG/ML Troponin I LESS THAN 0.02 NG/ML MDM Medical Decision Making Medical Screen Exam Complete: Yes Emergency Medical Condition: Yes Medical Record Reviewed: Yes (patient has been seen here several times recently. I saw him on 06/11 with a chief complaint of hematemesis. His workup was negative. He was seen here on 05/27 for chest pain. His workup was negative. Both times, he has been noted to be very anxious.) Interpretation(s) EKG shows sinus tachycardia with a rate of 109. No ST segment elevation or depression. EKG is unchanged from previous. Differential Diagnosis Differential diagnosis of chest pain includes but is not limited to musculoskeletal pain, pulmonary embolism, acute coronary syndrome, pneumonia, pleurisy Narrative Course Patient presents complaining with chest pain and shortness of breath. He has been previously evaluated for same with a negative workup. CBC & BMP Diagram 06/14/16 11:50 Troponin is less than 0.02. CK isoenzymes are normal. Last Impressions Chest X-Ray 06/14/16 1140 Signed Impressions: Service Date/Time: May 11:53 - CONCLUSION: No acute disease. Tim Mckee MD Chest x-ray was independently viewed by me. Patient is amenable to admission to the chest pain center for further evaluation. I will add a drug and alcohol level to his laboratory evaluation. Diagnosis Primary Impression: Chest pain Qualified Code: R07.9 - Chest pain, unspecified type Admitting Information Admitting Physician Requests: Observation Condition: Stable María Gil MD Jun 14, 2016 11:53
[2016-06-14] MEDS ORDERED: LORazepam 2 MG/ML VIAL IV PUSH ONE (12:00)
[2016-06-14 12:05] LABS: AUTOMATED NEUTROPHIL # 7.2 TH/MM3 (1.8-7.7); BASOPHIL # 0.1 TH/MM3 (0-0.2); BASOPHIL % 0.8 % (0.0-2.0); EOSINOPHIL # 0.5 TH/MM3 (0-0.4); EOSINOPHIL % 4.2 % (0.0-4.0); HEMATOCRIT 42.6 % (39.0-51.0); HEMO FLAGS DIFF FINAL; LYMPH % 25.5 % (9.0-44.0); LYMPHOCYTE # 3.1 TH/MM3 (1.0-4.8); MEAN CELL VOLUME 78.2 FL (80.0-100.0); MEAN CORPUSCULAR HEMOGLOBIN 27.5 PG (27.0-34.0); MEAN CORPUSCULAR HGB CONC 35.2 % (32.0-36.0); NEUT % 59.5 % (16.0-70.0); PLATELET COUNT 379 TH/MM3 (150-450); RED BLOOD COUNT 5.45 MIL/MM3 (4.50-5.90); RED CELL DISTRIBUTION WIDTH 15.8 % (11.6-17.2); WHITE BLOOD COUNT 12.1 TH/MM3 (4.0-11.0)
--- NOTE | 2016-06-14 12:07 | RADRPT ---
EXAM DATE/TIME: 06/14/2016 11:53 [facility] COMPARISON: CHEST SINGLE AP, May 27, 2016, 17:03. INDICATIONS : Chest pain. MEDICAL HISTORY : None. SURGICAL HISTORY : None. ENCOUNTER: Initial ACUITY: 1 day PAIN SCORE: 7/10 LOCATION: Left upper chest FINDINGS: A single view of the chest demonstrates the lungs to be symmetrically aerated without evidence of mas s, infiltrate or effusion. The cardiomediastinal contours are unremarkable. Osseous structures are intact. CONCLUSION: No acute disease. Tim Mckee MD on June 14, 2016 at 12:05 Board Certified Radiologist. This report was verified electronically.
[2016-06-14 12:21] LABS: ANION GAP 9 MEQ/L (5-15); BICARBONATE 25.4 MEQ/L (21.0-32.0); BLOOD UREA NITROGEN 11 MG/DL (7-18); CHLORIDE 104 MEQ/L (98-107); GLOMERULAR FILTRATION RATE 83 ML/MIN (>89); MAGNESIUM 2.3 MG/DL (1.5-2.5); POTASSIUM 4.3 MEQ/L (3.5-5.1); SODIUM (NA) 138 MEQ/L (136-145)
[2016-06-14 12:24] LABS: CREATINE KINASE 147 U/L (39-308)
[2016-06-14 12:36] LABS: CKMB 1.1 NG/ML (0.5-3.6)
[2016-06-14 12:55] VITALS: BP 118/67
[2016-06-14 14:42] LABS: AMPHETAMINE, URINE NEG (NEG); BARBITURATES, URINE NEG (NEG); COCAINE, URINE POS (NEG)
[2016-06-14 15:24] VITALS: BP 119/75; PULSE 96; RESP 16; TEMP 97.9; O2SAT 99
[2016-06-14] MEDS ORDERED: ONDANSETRON HCL 4 MG/2 ML VIAL IV PRN (16:15)
[2016-06-14] MEDS ORDERED: ACETAMINOPHEN/HYDROcodone 325 MG/7.5 MG TAB PO PRN (16:15)
[2016-06-14] MEDS ORDERED: ACETAMINOPHEN 500 MG CPLT PO PRN (16:15)
[2016-06-14] MEDS ORDERED: SODIUM CHLORIDE 0.9% FLUSH 5 ML FLUSH IVF PRN (16:15)
--- NOTE | 2016-06-14 16:24 | HHI.HP ---
HPI Primary Care Physician Unknown Chief Complaint Chest pain History of Present Illness This is a 31-year-old male that presents to the ED to evaluate chest discomfort. Patient states he did cocaine last night and again this morning. Then while he was at work he had go running to [place] a told him while doing that he developed a discomfort in the left side of his chest describes as an ache. He presented to the ED within about 2 hours. He states he was given medication in the ED which did help with the symptoms. Upon reviewing records he was given IV Ativan. He was little nauseous at one time. No shortness of breath or diaphoresis. Denies history of CAD. He states that his grandfather had CAD. Review of Systems General: Patient denies fevers, chills recent, and recent travel HEENT: Patient denies headache, sore throat, difficulty swallowing. Cardiovascular: Has the chest discomfort as mentioned above. Denies sensation of heart beating rapidly or irregularly. No syncope. Respiratory: Denies shortness of breath or inspirational chest discomfort. Denies coughing wheezing or hemoptysis. GI: Patient was a little nauseous. Patient denies vomiting, diarrhea, abdominal pain, bloody stools. Musculoskeletal: Patient denies joint pain or edema. Denies calf pain or edema. Neurovascular: Patient denies numbness, tingling, weakness in extremities. Denies headache. Endocrine: Denies polyuria and polydipsia. Hematologic: Denies easy bruising. Skin: Denies rash or itching. Past Family Social History Allergies: Coded Allergies: No Known Allergies (Verified , 06/14/16) Past Medical History Admits to cocaine abuse. Denies hypertension, hyperlipidemia, diabetes, and CAD. Past Surgical History Denies. Reported Medications Reported Meds & Active Scripts Active Active Ordered Medications Current Medications Medications (Trade) Dose Ordered Sig/Sergey Route Start Time Stop Time Status Last Admin (NS Flush) 2 ml UNSCH PRN IVF 06/14/16 16:15 (NS Flush) 2 ml BID IVF 06/14/16 21:00 (Tylenol) 500 mg Q4H PRN PO 06/14/16 16:15 (Hilliards 7.5-325 Mg) 1 tab Q4H PRN PO 06/14/16 16:15 (Zofran Inj) 4 mg Q6H PRN IV 06/14/16 16:15 Family History He states that his grandfather had CAD. Social History Patient is a smoking about half pack of cigarettes daily. He uses cocaine and marijuana. Has occasional alcohol. Physical Exam Vital Signs Vital Signs Date Time Temp Pulse Resp B/P Pulse Ox O2 Delivery O2 Flow Rate FiO2 06/14/16 15:24 97.9 96 16 119/75 99 06/14/16 12:55 63 16 118/67 06/14/16 11:51 101 Room Air 06/14/16 11:48 102 16 97 06/14/16 11:09 98.2 126 18 135/96 98 Physical Exam GENERAL: This is a well-nourished, well-developed patient, in no apparent distress. Patient speaks in clear complete sentences. Patient is pleasant. HEENT: Head is atraumatic and normocephalic. Neck is supple without lymphadenopathy and trachea is midline. No JVD or carotid bruits. CARDIOVASCULAR: Regular rate and rhythm without murmurs, gallops, or rubs. RESPIRATORY: Clear to auscultation. Breath sounds equal bilaterally. No wheezes , rales, or rhonchi. Chest wall is nontender. No use of accessory muscles. GASTROINTESTINAL: Abdomen is nontender, nondistended. Abdomen soft. No obvious pulsatile mass or bruit. No CVA tenderness. Strong femoral pulses bilaterally. Normal bowel sounds in all quadrants. MUSCULOSKELETAL: Patient is moving upper and lower extremities freely. There is discomfort with internal and external rotation of the left shoulder. No calf tenderness or edema, no Homans sign. Strong pulses in upper and lower extremities. NEUROLOGICAL: Patient is alert and oriented. Cranial nerves 2-12 are grossly intact. No focal deficits and speech is clear. SKIN: No rash and turgor is normal. Laboratory Laboratory Tests Test 06/14/16 06/14/16 11:50 13:00 White Blood Count 12.1 Red Blood Count 5.45 Hemoglobin 15.0 Hematocrit 42.6 Mean Corpuscular Volume 78.2 Mean Corpuscular Hemoglobin 27.5 Mean Corpuscular Hemoglobin 35.2 Concent Red Cell Distribution Width 15.8 Platelet Count 379 Mean Platelet Volume 8.2 Neutrophils (%) (Auto) 59.5 Lymphocytes (%) (Auto) 25.5 Monocytes (%) (Auto) 10.0 Eosinophils (%) (Auto) 4.2 Basophils (%) (Auto) 0.8 Neutrophils # (Auto) 7.2 Lymphocytes # (Auto) 3.1 Monocytes # (Auto) 1.2 Eosinophils # (Auto) 0.5 Basophils # (Auto) 0.1 CBC Comment DIFF FINAL Differential Comment Sodium Level 138 Potassium Level 4.3 Chloride Level 104 Carbon Dioxide Level 25.4 Anion Gap 9 Blood Urea Nitrogen 11 Creatinine 1.24 Estimat Glomerular Filtration 83 Rate Random Glucose 82 Calcium Level 9.0 Magnesium Level 2.3 Total Creatine Kinase 147 Creatine Kinase MB 1.1 Troponin I LESS THAN 0.02 Ethyl Alcohol Level 10 Urine Opiates Screen NEG Urine Barbiturates Screen NEG Urine Amphetamines Screen NEG Urine Benzodiazepines Screen NEG Urine Cocaine Screen POS Urine Cannabinoids Screen NEG Result Diagram: 06/14/16 1150 06/14/16 1150 Imaging Last 24 hours Impressions Chest X-Ray 06/14/16 1140 Signed Impressions: Service Date/Time: May 11:53 - CONCLUSION: No acute disease. Tim Mckee MD Course First 2 EKGs have sinus rhythm without significant ST segment depressions or elevations. Assessment and Plan Assessment and Plan * Atypical chest pain: Patient's first 2 EKGs have no significant ST segment depressions or elevations. Second troponin is pending. Patient has been evaluated by Dr. Perez of cardiology in the chest pain center. He'll be discharged home if the second troponin were to be normal. * Cocaine abuse: Patient has been counseled on importance of no longer using cocaine. It was explained to medical kill him. * Tobacco abuse: Patient has been counseled on the importance of smoking cessation. Cuauhtemoc Guerrero Jun 14, 2016 16:24
--- NOTE | 2016-06-14 16:27 | HHI.DCPOC ---
Discharge Care Plan Diagnosis: (1) Chest pain, atypical (2) Cocaine abuse (3) Tobacco abuse Goals to Promote Your Health * To prevent worsening of your condition and complications * To maintain your health at the optimal level Directions to Meet Your Goals Take your medications as prescribed Follow your dietary instruction Follow activity as directed Keep your appointments as scheduled Take your immunizations and boosters as scheduled If your symptoms worsen call your PCP, if no PCP go to Urgent Care Center or Emergency Room Smoking is Dangerous to Your Health. Avoid second hand smoke Call the 24-hour hour crisis hotline for domestic abuse at Cuauhtemoc Guerrero Jun 14, 2016 16:27
[2016-06-14] MEDS ORDERED: SODIUM CHLORIDE 0.9% FLUSH 5 ML FLUSH IVF SCH (21:00)
--- NOTE | 2016-06-15 18:38 | EKG ---
Date Performed: 06/14/2016 Time Performed: 11:19:09 PTAGE: 31 years EKG: SINUS TACHYCARDIA POSSIBLE LEFT ATRIAL ENLARGEMENT ST-T abnormality is resolved Compared to previous tracing ABNORMAL RHYTHM ECG PREVIOUS TRACING : 05/27/2016 16.57 DOCTOR: Lan Duarte Interpretating Date/Time 06/15/2016 18:37:01
--- NOTE | 2016-06-15 19:32 | EKG ---
Date Performed: 06/14/2016 Time Performed: 14:57:05 PTAGE: 31 years EKG: Sinus rhythm WITH SINUS ARRHYTHMIA Compared to prior tracing no significant change NORMAL ECG PREVIOUS TRACING : 06/14/2016 11.19 DOCTOR: Lan Duarte Interpretating Date/Time 06/15/2016 19:31:00
== END 2016-06-14 17:39 | disposition home or self-care (01) ==
LOC: NEPD 11:07 → NEDA 12:50 → NEPFCDU 14:36
DX: R07.9 Chest pain, unspecified (principal); R06.02 Shortness of breath; F14.10 Cocaine abuse, uncomplicated; F41.9 Anxiety disorder, unspecified; F17.210 Nicotine dependence, cigarettes, uncomplicated; F12.10 Cannabis abuse, uncomplicated; R00.0 Tachycardia, unspecified; R11.0 Nausea; I49.8 Other specified cardiac arrhythmias
CPT/HCPCS: 71010; 80048; 80307; 82550; 82552; 83735; 84484; 85025; 93005; 96374; 99285; G0378; J2060

== ENCOUNTER 2017-03-16 23:40 | Emergency (ER) | payer SELFPAY ==
[~2017-03-16] VITALS: Ht 172.7 cm; Wt 108.0 kg
[2017-03-16 23:45] VITALS: BP 141/80; PULSE 98; RESP 18; TEMP 98.1; O2SAT 98
[2017-03-17] MEDS ORDERED: VENTAER INH (00:38)
[2017-03-17] MEDS ORDERED: MEDR4PAK PO (00:38)
--- NOTE | 2017-03-17 00:39 | PD ---
HPI Chief Complaint: Cold / Flu Symptoms Time Seen by Provider: 00:03 Travel History International Travel<30 days: No Contact w/Intl Traveler<30days: No Traveled to known affect area: No History of Present Illness HPI patient c/o dry cough, nonproductive for last week or so, has not been evaluated for it nor has he had any abx for this........denies any alleviating/ aggravating factors.......denies assoc fever/sob/cp/abdpain/backpain/n/v/d/ runny nose all: denies pmhx: asthma, active smoker, PFSH Past Medical History Hx Anticoagulant Therapy: No Asthma: Yes Blood Disorders: No Bipolar Disorder: Yes Anxiety: Yes Cancer: No Cardiovascular Problems: No Chemotherapy: No Cerebrovascular Accident: No Diabetes: No Diminished Hearing: No Psychiatric: Yes (HBS INPT) Respiratory: No Immunizations Current: Yes Seizures: No Sickle Cell Disease: Yes (TRAIT) Thyroid Disease: No Ulcer: No Influenza Vaccination: No ?: Not Past Surgical History Appendectomy: Yes Other Surgery: Yes (HERNIA REPAIR) Social History Alcohol Use: Yes (occasional) Tobacco Use: Yes (states stop 1 week ago) Substance Use: Yes (cocaine) Allergies-Medications (Allergen,Severity, Reaction): Coded Allergies: No Known Allergies (Verified Adverse Reaction, Unknown, 03/16/17) Reported Meds & Prescriptions Reported Meds & Active Scripts Active Medrol Dosepak (Methylprednisolone) 4 Mg Dspk 4 Mg PO DIRECTED Per Pharmacist direction Ventolin Hfa 18 GM Inh (Albuterol Sulfate) 90 Mcg/Act Aer 2 Puff INH Q4-6H PRN Review of Systems General / Constitutional: No: Fever Eyes: No: Visual changes HENT: No: Headaches Cardiovascular: No: Chest Pain or Discomfort Respiratory: Positive: Cough Gastrointestinal: No: Abdominal Pain Genitourinary: No: Dysuria Musculoskeletal: No: Pain Skin: No Rash Neurologic: No: Weakness Psychiatric: No: Depression Endocrine: No: Polydipsia Hematologic/Lymphatic: No: Easy Bruising Physical Exam Narrative GENERAL: SKIN: Warm and dry. HEAD: Atraumatic. Normocephalic. EYES: Pupils equal and round. No scleral icterus. No injection or drainage. ENT: No nasal bleeding or discharge. Mucous membranes pink and moist. NECK: Trachea midline. No JVD. CARDIOVASCULAR: Regular rate and rhythm. RESPIRATORY: No accessory muscle use. Clear to auscultation. Breath sounds has ronchi bilaterally and minimal wheezing, normal tidal volume GASTROINTESTINAL: Abdomen soft, non-tender, nondistended. MUSCULOSKELETAL: Extremities without clubbing, cyanosis, or edema. No obvious deformities. NEUROLOGICAL: Awake and alert. No obvious cranial nerve deficits. Motor grossly within normal limits. Five out of 5 muscle strength in the arms and legs. Normal speech. PSYCHIATRIC: Appropriate mood and affect; insight and judgment normal. Data Data Last Documented VS Vital Signs Date Time Temp Pulse Resp B/P (MAP) Pulse Ox O2 Delivery O2 Flow Rate FiO2 03/17/17 00:13 18 98 Room Air 03/16/17 23:45 98.1 98 141/80 (100) Orders Orders Chest, Pa & Lat (03/17/17 00:24) [facility] Medical Decision Making Medical Screen Exam Complete: Yes Emergency Medical Condition: Yes Medical Record Reviewed: Yes Differential Diagnosis pna v ptx v mass Narrative Course on examination was found to have some scattered minimal wheezing, which is most likely secondary to smoking caused bronchospasm. Chest x-ray does show evidence of infiltrate on lateral view only c/w pneumonia , however no mass or pneumothorax Diagnosis Primary Impression: Acute bacterial bronchitis with bronchospasm Patient Instructions: Bronchospasm (GEN), General Instructions Scripts Ciprofloxacin (Cipro) 500 Mg Tab 500 MG PO BID for Infection for 7 Days, #14 TAB 0 Refills Prov: Sandip Bullock MD 03/17/17 Methylprednisolone Dosepak (Medrol Dosepak) 4 Mg Dspk 4 MG PO DIRECTED, #1 DSPK 0 Refills Per Pharmacist direction Prov: Sandip Bullock MD 03/17/17 Albuterol 18 GM Inh (Ventolin Hfa 18 GM Inh) 90 Mcg/Act Aer 2 PUFF INH Q4-6H Y for SHORTNESS OF BREATH, #1 INHALER 0 Refills Prov: Sandip Bullock MD 03/17/17 Disposition: 01 DISCHARGE HOME Condition: Stable Sandip Bullock MD Mar 17, 2017 00:39
--- NOTE | 2017-03-17 00:46 | RADRPT ---
EXAM DATE/TIME: 03/17/2017 00:34 [facility] COMPARISON: CHEST PA & LAT, August 13, 2015, 8:25. INDICATIONS : Cough. MEDICAL HISTORY : Asthma, Smoker SURGICAL HISTORY : Appendectomy. ENCOUNTER: Initial ACUITY: 1 week PAIN SCORE: 0/10 LOCATION: Bilateral chest FINDINGS: Very subtle posterior lower lobe airspace disease noted on the lateral view only. Cardiome stone cont ours are within normal limits. Bony thorax is intact. CONCLUSION: 1. Very subtle posterior lower lobe airspace disease noted on the lateral view only. Differential con siderations include atelectasis versus developing pneumonia. Aman Hagan MD on March 17, 2017 at 0:44 Board Certified Radiologist. This report was verified electronically.
[2017-03-17] MEDS ORDERED: CIPR-9 PO (00:58)
[2017-03-17 01:28] VITALS: BP 126/74
== END 2017-03-17 01:30 | disposition home or self-care (01) ==
LOC: PHED 23:40
DX: J20.8 Acute bronchitis due to other specified organisms (principal); B96.89 Other specified bacterial agents as the cause of diseases classified elsewhere; F31.9 Bipolar disorder, unspecified; Z87.891 Personal history of nicotine dependence
CPT/HCPCS: 71046; 99284